=== PATIENT | male | born 1955 | race Hispanic/Latino ===

== ENCOUNTER 2020-09-05 16:26 | Emergency (ER) | payer MEDICARE ==
[~2020-09-05] VITALS: Ht 175.3 cm; Wt 81.6 kg
[~2020-09-05 16:26] MED LIST: ASPIR 8181 MG PO; ZESTRIL10 MG PO
[2020-09-05 17:36] LABS: BASOPHILS # (AUTO) 0.1 (0.0-0.1); BASOPHILS % 0.6 % (0.0-1.0); EOSINOPHILS # (AUTO) 0.3 (0.0-0.4); EOSINOPHILS % 2.9 % (0.0-6.0); HEMATOCRIT 46.5 % (38.2-49.6); HEMOGLOBIN 15.7 g/dL (14.0-18.0); LYMPHOCYTES # (AUTO) 2.5 (1.0-3.2); LYMPHOCYTES % 26.3 % (18.0-39.1); MEAN CORPUSCULAR HEMOGLOBIN 30.1 pg (28-32); MEAN CORPUSCULAR HGB CONC 33.8 g/dL (31-35); MEAN CORPUSCULAR VOLUME 89.1 fL (81-99); MONOCYTES # (AUTO) 0.9 (0.2-0.8); MONOCYTES % 9.5 % (4.4-11.3); NEUTROPHILS # (AUTO) 5.6 (2.1-6.9); NEUTROPHILS % 59.8 % (38.7-80.0); PLATELET COUNT 298 x10e3/uL (140-360); RED BLOOD COUNT 5.22 x10e6/uL (4.3-5.7); RED CELL DISTRIBUTION WIDTH 14.1 % (11.7-14.4)
[2020-09-05 17:44] LABS: ALBUMIN 3.6 g/dL (3.5-5.0); ALBUMIN/GLOBULIN RATIO 1.1 (0.8-2.0); ANION GAP 16.1 mmol/L (8-16); CALCIUM 9.5 mg/dL (8.4-10.2); CREATININE, SERUM 1.45 mg/dL (0.72-1.25); POTASSIUM 4.1 mmol/L (3.5-5.1)
[2020-09-05] MEDS ORDERED: CEFEPIME HCL 1 GM VIAL IV STA (20:06)
[2020-09-05] MEDS ORDERED: VANCOMYCIN 1GM/NS 250 ML 250 ML IV STA (20:06)
[2020-09-05] MEDS ORDERED: CEFEPIME HCL 1GM 1 GM in SODIUM CHLORIDE 0.9% 50ML 50 ML IV STA (20:17)
== END 2020-09-05 23:30 | disposition home or self-care (01) ==
LOC: ER 18:56
DX: M79.671 Pain in right foot (principal); L03.115 Cellulitis of right lower limb; I10 Essential (primary) hypertension; Z20.822 Contact with and (suspected) exposure to COVID-19
CPT/HCPCS: 36415; 73630; 80053; 83605; 85025; 87040; J0692; J3370; U0002; 99284

== ENCOUNTER 2022-11-11 12:15 | Inpatient (IN) | payer MEDICARE ==
[~2022-11-11] VITALS: Ht 175.3 cm; Wt 81.6 kg
[2022-11-11 13:15] VITALS: BP 128/77; PULSE 63; RESP 18; TEMP 97.9; O2SAT 99
[2022-11-11] MEDS ORDERED: NEURONTIN100 MG PO (13:29)
[2022-11-11] MEDS ORDERED: PRAVASTATIN SOD20 MG PO (13:29)
[2022-11-11 13:30] VITALS: BP 128/77; PULSE 63; RESP 18; TEMP 97.9; O2SAT 99
[2022-11-11] MEDS ORDERED: VITAMIN D31250 MCG PO (13:30)
[2022-11-11] MEDS ORDERED: ASPIRIN81 MG PO (13:31)
[2022-11-11] MEDS ORDERED: NAPROXEN250 MG PO (13:32)
[2022-11-11 14:38] LABS: BASOPHILS # (AUTO) 0.1 (0.0-0.1); BASOPHILS % 0.8 % (0.0-1.0); EOSINOPHILS # (AUTO) 0.5 (0.0-0.4); EOSINOPHILS % 6.7 % (0.0-6.0); HEMATOCRIT 40.7 % (38.2-49.6); HEMOGLOBIN 13.1 g/dL (14.0-18.0); LYMPHOCYTES # (AUTO) 1.6 (1.0-3.2); LYMPHOCYTES % 21.2 % (18.0-39.1); MEAN CORPUSCULAR HEMOGLOBIN 29.9 pg (28-32); MEAN CORPUSCULAR HGB CONC 32.2 g/dL (31-35); MEAN CORPUSCULAR VOLUME 92.9 fL (81-99); MONOCYTES # (AUTO) 0.8 (0.2-0.8); MONOCYTES % 11.1 % (4.4-11.3); NEUTROPHILS # (AUTO) 4.6 (2.1-6.9); NEUTROPHILS % 59.9 % (38.7-80.0); PLATELET COUNT 386 x10e3/uL (140-360); RED BLOOD COUNT 4.38 x10e6/uL (4.3-5.7); RED CELL DISTRIBUTION WIDTH 14.8 % (11.7-14.4)
[2022-11-11] MEDS: GABAPENTIN 100 MG CAP PO SCH ×2 (15:02→21:16)
[2022-11-11] MEDS: Vancomycin IV 1 GM in SODIUM CHLORIDE 0.9% 250ML 250 ML IV SCH (15:03)
[2022-11-11 16:00] VITALS: BP 120/64; PULSE 53; RESP 18; TEMP 97.7; O2SAT 100
[2022-11-11 20:00] VITALS: BP 125/69; PULSE 62; RESP 17; TEMP 97.8; O2SAT 100
[2022-11-11] MEDS: PRAVASTATIN 20 MG TAB PO SCH (21:16)
[2022-11-12] VITALS (7 sets, daily range): BP systolic 111–124; BP diastolic 59–93; PULSE 58–64; RESP 16–18; TEMP 97.6–98.4; O2SAT 100
[2022-11-12] MEDS: Vancomycin IV 1 GM in SODIUM CHLORIDE 0.9% 250ML 250 ML IV SCH (01:34)
[2022-11-12] MEDS ORDERED: HYDROCODONE/APAP 10MG-325MG TAB PO PRN (08:45)
[2022-11-12] MEDS ORDERED: ONDANSETRON HCL INJ 2MG/ML 2ML 2 MG/ML VIAL IV PRN ×2 (08:45)
[2022-11-12] MEDS ORDERED: SIMETHICONE 80 MG CHEW PO PRN (08:45)
[2022-11-12] MEDS ORDERED: DOCUSATE SODIUM 100 MG CAP PO PRN (08:45)
[2022-11-12] MEDS ORDERED: HYDRALAZINE HCL 20 MG/ML VIAL IV PRN (08:45)
[2022-11-12] MEDS ORDERED: ACETAMINOPHEN 325 MG TAB PO PRN ×2 (08:45)
[2022-11-12] MEDS ORDERED: METOPROLOL TARTRATE INJ 1 MG/ML VIAL IV PRN (08:45)
[2022-11-12] MEDS: ASPIRIN 81 MG CHEW TAB PO SCH (09:34)
[2022-11-12] MEDS: GABAPENTIN 100 MG CAP PO SCH ×3 (09:34→20:29)
[2022-11-12] MEDS: LISINOPRIL 10 MG TAB PO SCH (09:34)
[2022-11-12 11:21] LABS: BASOPHILS # (AUTO) 0.1 (0.0-0.1); BASOPHILS % 0.6 % (0.0-1.0); EOSINOPHILS # (AUTO) 0.6 (0.0-0.4); EOSINOPHILS % 7.5 % (0.0-6.0); HEMATOCRIT 41.4 % (38.2-49.6); HEMOGLOBIN 13.4 g/dL (14.0-18.0); LYMPHOCYTES # (AUTO) 1.3 (1.0-3.2); LYMPHOCYTES % 17.3 % (18.0-39.1); MEAN CORPUSCULAR HGB CONC 32.4 g/dL (31-35); MEAN CORPUSCULAR VOLUME 92.6 fL (81-99); MONOCYTES # (AUTO) 0.8 (0.2-0.8); MONOCYTES % 9.8 % (4.4-11.3); NEUTROPHILS % 64.4 % (38.7-80.0); PLATELET COUNT 375 x10e3/uL (140-360); RED BLOOD COUNT 4.47 x10e6/uL (4.3-5.7); RED CELL DISTRIBUTION WIDTH 14.9 % (11.7-14.4)
[2022-11-12 11:42] LABS: ANION GAP 10.6 mmol/L (8-16); CREATININE, SERUM 0.82 mg/dL (0.72-1.25); POTASSIUM 4.6 mmol/L (3.5-5.1)
[2022-11-12] MEDS: FLUCONAZOLE 200 MG/100 ML 100 ML IV SCH (12:27)
[2022-11-12] MEDS ORDERED: SODIUM CHLORIDE 0.9% 250ML 250 ML ONE (12:37)
[2022-11-12] MEDS: CLINDAMYCIN 600MG / 50ML 50 ML IV SCH ×2 (14:17→20:30)
[2022-11-12] MEDS: MELATONIN 3 MG TAB PO PRN (20:29)
[2022-11-12] MEDS: PRAVASTATIN 20 MG TAB PO SCH (20:29)
[2022-11-12] MEDS: METHYLPREDNISOLONE SOD SUCC 125 MG/2ML VIAL IV SCH (20:30)
[2022-11-12] MEDS ORDERED: METHYLPREDNISOLONE SOD SUCC 40 MG/ML VIAL 1ML IV SCH (21:00)
[2022-11-13] VITALS (7 sets, daily range): BP systolic 95–130; BP diastolic 56–70; PULSE 61–78; RESP 16–20; TEMP 97.8–98.5; O2SAT 95–100
[2022-11-13] MEDS: CLINDAMYCIN 600MG / 50ML 50 ML IV SCH ×3 (05:21→21:12)
[2022-11-13 07:03] LABS: BASOPHILS % 0.2 % (0.0-1.0); EOSINOPHILS % 0.2 % (0.0-6.0); HEMATOCRIT 39.4 % (38.2-49.6); HEMOGLOBIN 12.6 g/dL (14.0-18.0); LYMPHOCYTES # (AUTO) 0.8 (1.0-3.2); LYMPHOCYTES % 14.1 % (18.0-39.1); MEAN CORPUSCULAR HEMOGLOBIN 29.7 pg (28-32); MEAN CORPUSCULAR VOLUME 92.9 fL (81-99); MONOCYTES % 0.7 % (4.4-11.3); NEUTROPHILS # (AUTO) 4.8 (2.1-6.9); NEUTROPHILS % 84.3 % (38.7-80.0); PLATELET COUNT 377 x10e3/uL (140-360); RED BLOOD COUNT 4.24 x10e6/uL (4.3-5.7); RED CELL DISTRIBUTION WIDTH 14.5 % (11.7-14.4)
[2022-11-13 07:26] LABS: CALCIUM 8.7 mg/dL (8.4-10.2); CREATININE, SERUM 0.82 mg/dL (0.72-1.25)
[2022-11-13] MEDS: ASPIRIN 81 MG CHEW TAB PO SCH (09:08)
[2022-11-13] MEDS: LISINOPRIL 10 MG TAB PO SCH (09:09)
[2022-11-13] MEDS: METHYLPREDNISOLONE SOD SUCC 125 MG/2ML VIAL IV SCH (09:09)
[2022-11-13] MEDS: GABAPENTIN 100 MG CAP PO SCH ×3 (09:09→21:12)
[2022-11-13] MEDS: FLUCONAZOLE 200 MG/100 ML 100 ML IV SCH (09:10)
[2022-11-13] MEDS: HYDROCORTISONE 1% CREAM 30 GM TUBE EXT SCH ×2 (11:10→15:31)
[2022-11-13] MEDS: MELATONIN 3 MG TAB PO PRN (21:12)
[2022-11-13] MEDS: PRAVASTATIN 20 MG TAB PO SCH (21:12)
[2022-11-14] VITALS: BP 98/64; PULSE 66; RESP 18; TEMP 98; O2SAT 97
[2022-11-14 04:00] VITALS: BP 114/67; PULSE 70; RESP 18; TEMP 98.4; O2SAT 98
[2022-11-14] MEDS: CLINDAMYCIN 600MG / 50ML 50 ML IV SCH (05:06)
[2022-11-14 06:17] LABS: CHOL/HDL RATIO 3.3 (3.9-4.7)
[2022-11-14 08:33] VITALS: BP 126/73; PULSE 69; RESP 16; TEMP 98; O2SAT 100
[2022-11-14] MEDS: FLUCONAZOLE 200 MG/100 ML 100 ML IV SCH (08:39)
[2022-11-14] MEDS: LISINOPRIL 10 MG TAB PO SCH (08:42)
[2022-11-14] MEDS: GABAPENTIN 100 MG CAP PO SCH (08:42)
[2022-11-14] MEDS: HYDROCORTISONE 1% CREAM 30 GM TUBE EXT SCH (08:43)
[2022-11-14 08:45] VITALS: BP 126/73; PULSE 69; RESP 16; TEMP 98; O2SAT 100
[2022-11-14] MEDS: ASPIRIN 81 MG CHEW TAB PO SCH (09:03)
[2022-11-14] MEDS ORDERED: ONDANSETRON HCL 4 MG ORAL DISINTEGRATING TAB PO PRN (11:00)
[2022-11-14 11:57] VITALS: BP 129/59; PULSE 69; RESP 16; TEMP 97.8; O2SAT 95
[2022-11-14] MEDS ORDERED: DOXYCYCLINE HY100 MG PO (13:56)
[2022-11-14] MEDS ORDERED: CLEOCIN HCL300 MG PO (13:57)
[2022-11-14] MEDS ORDERED: DIFLUCAN100 MG PO (13:57)
[2022-11-14] MEDS ORDERED: HYDROCORTISONE CREAM (13:59)
== END 2022-11-14 15:00 | disposition home or self-care (01) | DRG 603 ==
LOC: MED/SURG2 12:51
PROVIDERS: ADMIT Internal Medicine; ATTEND Internal Medicine
DX: L03.115 Cellulitis of right lower limb (principal); L30.8 Other specified dermatitis; I10 Essential (primary) hypertension; E78.5 Hyperlipidemia, unspecified; E78.00 Pure hypercholesterolemia, unspecified; Z87.891 Personal history of nicotine dependence; Z79.82 Long term (current) use of aspirin; Z79.899 Other long term (current) drug therapy
CPT/HCPCS: 36415; 80048; 80061; 80202; 83036; 85025; 85651; 87040; 93926; 99252; J1450; J2930; J7050